=== PATIENT | female | born 1955 | race Caucasian/White ===

== ENCOUNTER 2020-03-03 14:29 | Inpatient (IN) ==
[2020-03-03] MEDS: Multivit/Ca/Min/Fe/FA 1 TAB TABLET PO SCH (20:52)
[2020-03-03] MEDS: Aspirin Enteric Coated 81 MG Tablet PO SCH (20:52)
[2020-03-03] MEDS: FLUoxetine 20 MG CAPSULE PO SCH (20:53)
[2020-03-03] MEDS: hydrOXYzine pamoate 25 MG CAPSULE PO SCH (20:54)
[2020-03-03] MEDS: *HR* OxyCODONE Immed Rel 5 MG TABLET PO PRN (20:54)
[2020-03-03] MEDS: Pregabalin 50 MG CAPSULE PO SCH (20:55)
[2020-03-04 06:40] LABS: Basophils # 0.1 K/mcL (0.0-0.2); Eosinophils # 0.5 K/mcL (0.0-0.6); Eosinophils % 4.9 %; Hematocrit 35.9 % (35.3-44.9); Hemoglobin 11.5 g/dL (11.5-15.4); Immature Granulocytes % 2.7 % (0-4); Lymphocytes # 4.2 K/mcL (0.6-4.6); Mean Corpuscular Hemoglobin 30.2 pg (28.0-33.3); Mean Corpuscular Volume 94.2 fL (83.0-100.0); Mean Platelet Volume 12.6 fL (9.4-12.4); Monocytes % 17.7 %; Nucleated Red Blood Cells 0.2 /100 WBC (0); Platelet Count 717 K/mcL (140-400); Red Blood Count 3.81 M/mcL (3.82-4.97); Red Cell Distribution Width 14.1 % (11.5-14.5); Segmented Neutrophils % 35.7 %; White Blood Count 11.1 K/mcL (4.3-11.1)
[2020-03-04 08:06] LABS: BUN/Creatinine Ratio 35 (6-26); Blood Urea Nitrogen 22 mg/dL (8-23); Calcium 8.8 mg/dL (8.6-10.3); Carbon Dioxide 27 mEq/L (23-29); Chloride 98 mEq/L (98-107); Glucose 97 mg/dL (70-105); Osmolality,Calculated 283 (280-300); Potassium 4.2 mEq/L (3.5-5.1); Sodium 135 mEq/L (136-145); eGFR For African Americans > 60 (> 60); eGFR For Non-African Americans > 60 (> 60)
[2020-03-04] MEDS: levoFLOXacin 250 MG TABLET PO SCH (08:31)
[2020-03-04] MEDS: Vitamin B Complex/Vit C/Vit E 1 EACH TABLET PO SCH (08:32)
[2020-03-04] MEDS: Cholecalciferol (D-3) 1,000 UNIT (25MCG) TABLET PO SCH (08:32)
[2020-03-04] MEDS: Pregabalin 50 MG CAPSULE PO SCH ×2 (08:32→20:19)
[2020-03-04 08:34] LABS: Platelet Estimate Increased (Normal)
[2020-03-04] MEDS: Acetaminophen/Aspirin/Caffeine TABLET PO PRN (10:22)
[2020-03-04 15:09] LABS: Bilirubin,Urine Negative (Negative); Blood,Urine Negative (Negative); Clarity,Urine Clear (Clear); Color,Urine Yellow (Yellow); Glucose,Urine (UA) Normal (Normal); Ketones,Urine Negative (Negative); Leukocyte Esterase,Urine Negative (Negative); Nitrite,Urine Negative (Negative); Protein,Urine Negative (Neg-Trace); Urobilinogen,Urine Normal (Normal)
[2020-03-04] MEDS: *HR* OxyCODONE Immed Rel 5 MG TABLET PO PRN (19:34)
[2020-03-04] MEDS: Multivit/Ca/Min/Fe/FA 1 TAB TABLET PO SCH (20:18)
[2020-03-04] MEDS: Aspirin Enteric Coated 81 MG Tablet PO SCH (20:19)
[2020-03-04] MEDS: hydrOXYzine pamoate 25 MG CAPSULE PO SCH (20:19)
[2020-03-04] MEDS: FLUoxetine 20 MG CAPSULE PO SCH (20:20)
[2020-03-04] MEDS: Acetaminophen 325 MG TABLET PO PRN (21:19)
[2020-03-05] MEDS: Acetaminophen 325 MG TABLET PO PRN ×2 (04:15→10:37)
[2020-03-05] MEDS: Cholecalciferol (D-3) 1,000 UNIT (25MCG) TABLET PO SCH (09:10)
[2020-03-05] MEDS: Vitamin B Complex/Vit C/Vit E 1 EACH TABLET PO SCH (09:10)
[2020-03-05] MEDS: levoFLOXacin 250 MG TABLET PO SCH (09:10)
[2020-03-05] MEDS: Pregabalin 50 MG CAPSULE PO SCH ×2 (09:10→20:32)
[2020-03-05] MEDS: Ondansetron ODT 4 MG TAB.RAPDIS PO PRN ×2 (10:34→21:20)
[2020-03-05] MEDS: hydrOXYzine pamoate 25 MG CAPSULE PO PRN (13:10)
[2020-03-05] MEDS: Acetaminophen/Aspirin/Caffeine TABLET PO PRN (18:46)
[2020-03-05] MEDS: FLUoxetine 20 MG CAPSULE PO SCH (20:31)
[2020-03-05] MEDS: Multivit/Ca/Min/Fe/FA 1 TAB TABLET PO SCH (20:32)
[2020-03-05] MEDS: hydrOXYzine pamoate 25 MG CAPSULE PO SCH (20:32)
[2020-03-05] MEDS: Aspirin Enteric Coated 81 MG Tablet PO SCH (20:32)
[2020-03-05] MEDS: *HR* OxyCODONE Immed Rel 5 MG TABLET PO PRN (22:41)
[2020-03-06] MEDS: Vitamin B Complex/Vit C/Vit E 1 EACH TABLET PO SCH (07:57)
[2020-03-06] MEDS: Cholecalciferol (D-3) 1,000 UNIT (25MCG) TABLET PO SCH (07:58)
[2020-03-06] MEDS: levoFLOXacin 250 MG TABLET PO SCH (07:58)
[2020-03-06] MEDS: Pregabalin 50 MG CAPSULE PO SCH ×2 (07:58→21:05)
[2020-03-06] MEDS: *HR* OxyCODONE Immed Rel 5 MG TABLET PO PRN (17:57)
[2020-03-06] MEDS: Aspirin Enteric Coated 81 MG Tablet PO SCH (21:04)
[2020-03-06] MEDS: FLUoxetine 20 MG CAPSULE PO SCH (21:05)
[2020-03-06] MEDS: Multivit/Ca/Min/Fe/FA 1 TAB TABLET PO SCH (21:05)
[2020-03-06] MEDS: hydrOXYzine pamoate 25 MG CAPSULE PO SCH (21:05)
[2020-03-06] MEDS: Acetaminophen/Aspirin/Caffeine TABLET PO PRN (22:29)
[2020-03-07] MEDS: *HR* OxyCODONE Immed Rel 5 MG TABLET PO PRN ×3 (02:18→21:28)
[2020-03-07] MEDS: Ondansetron ODT 4 MG TAB.RAPDIS PO PRN (05:18)
[2020-03-07] MEDS: Pregabalin 50 MG CAPSULE PO SCH ×2 (08:06→19:41)
[2020-03-07] MEDS: levoFLOXacin 250 MG TABLET PO SCH (08:06)
[2020-03-07] MEDS: Vitamin B Complex/Vit C/Vit E 1 EACH TABLET PO SCH (08:06)
[2020-03-07] MEDS: Cholecalciferol (D-3) 1,000 UNIT (25MCG) TABLET PO SCH (08:06)
[2020-03-07 16:30] LABS: Hematocrit 36.7 % (35.3-44.9); Hemoglobin 11.8 g/dL (11.5-15.4); Mean Corpuscular HGB Conc 32.2 g/dL (31.6-35.5); Mean Corpuscular Hemoglobin 30.5 pg (28.0-33.3); Mean Corpuscular Volume 94.8 fL (83.0-100.0); Mean Platelet Volume 12.4 fL (9.4-12.4); Platelet Count 667 K/mcL (140-400); Red Blood Count 3.87 M/mcL (3.82-4.97); Red Cell Distribution Width 14.3 % (11.5-14.5); White Blood Count 12.2 K/mcL (4.3-11.1)
[2020-03-07 16:53] LABS: BUN/Creatinine Ratio 13 (6-26); Blood Urea Nitrogen 8 mg/dL (8-23); Calcium 8.9 mg/dL (8.6-10.3); Carbon Dioxide 24 mEq/L (23-29); Chloride 100 mEq/L (98-107); Glucose 95 mg/dL (70-105); Osmolality,Calculated 274 (280-300); Potassium 4.2 mEq/L (3.5-5.1); Sodium 133 mEq/L (136-145); eGFR For African Americans > 60 (> 60); eGFR For Non-African Americans > 60 (> 60)
[2020-03-07] MEDS: Acetaminophen 325 MG TABLET PO PRN (18:35)
[2020-03-07] MEDS: hydrOXYzine pamoate 25 MG CAPSULE PO SCH (19:41)
[2020-03-07] MEDS: Aspirin Enteric Coated 81 MG Tablet PO SCH (19:41)
[2020-03-07] MEDS: FLUoxetine 20 MG CAPSULE PO SCH (19:41)
[2020-03-07] MEDS: Multivit/Ca/Min/Fe/FA 1 TAB TABLET PO SCH (19:42)
[2020-03-08 07:55] LABS: Hematocrit 36.3 % (35.3-44.9); Hemoglobin 11.7 g/dL (11.5-15.4); Mean Corpuscular HGB Conc 32.2 g/dL (31.6-35.5); Mean Corpuscular Hemoglobin 30.7 pg (28.0-33.3); Mean Corpuscular Volume 95.3 fL (83.0-100.0); Mean Platelet Volume 12.6 fL (9.4-12.4); Platelet Count 560 K/mcL (140-400); Red Blood Count 3.81 M/mcL (3.82-4.97); Red Cell Distribution Width 14.4 % (11.5-14.5); White Blood Count 7.9 K/mcL (4.3-11.1)
[2020-03-08 08:08] LABS: BUN/Creatinine Ratio 14 (6-26); Blood Urea Nitrogen 8 mg/dL (8-23); Calcium 8.5 mg/dL (8.6-10.3); Carbon Dioxide 26 mEq/L (23-29); Chloride 102 mEq/L (98-107); Glucose 105 mg/dL (70-105); Osmolality,Calculated 281 (280-300); Sodium 136 mEq/L (136-145); eGFR For African Americans > 60 (> 60); eGFR For Non-African Americans > 60 (> 60)
[2020-03-08] MEDS: Pregabalin 50 MG CAPSULE PO SCH ×2 (08:38→21:30)
[2020-03-08] MEDS: Cholecalciferol (D-3) 1,000 UNIT (25MCG) TABLET PO SCH (08:38)
[2020-03-08] MEDS: Vitamin B Complex/Vit C/Vit E 1 EACH TABLET PO SCH (08:38)
[2020-03-08] MEDS: Acetaminophen 325 MG TABLET PO PRN (08:39)
[2020-03-08] MEDS: Acetaminophen/Aspirin/Caffeine TABLET PO PRN (14:57)
[2020-03-08] MEDS: Ondansetron ODT 4 MG TAB.RAPDIS PO PRN (16:43)
[2020-03-08] MEDS: *HR* OxyCODONE Immed Rel 5 MG TABLET PO PRN (21:38)
[2020-03-08] MEDS: Aspirin Enteric Coated 81 MG Tablet PO SCH (21:39)
[2020-03-08] MEDS: Multivit/Ca/Min/Fe/FA 1 TAB TABLET PO SCH (21:40)
[2020-03-08] MEDS: hydrOXYzine pamoate 25 MG CAPSULE PO SCH (21:40)
[2020-03-08] MEDS: FLUoxetine 20 MG CAPSULE PO SCH (21:40)
[2020-03-09] MEDS: hydrOXYzine pamoate 25 MG CAPSULE PO PRN (02:14)
[2020-03-09] MEDS: Acetaminophen 325 MG TABLET PO PRN ×2 (04:09→14:34)
[2020-03-09] MEDS: Cholecalciferol (D-3) 1,000 UNIT (25MCG) TABLET PO SCH (08:33)
[2020-03-09] MEDS: Vitamin B Complex/Vit C/Vit E 1 EACH TABLET PO SCH (08:33)
[2020-03-09] MEDS: Pregabalin 50 MG CAPSULE PO SCH ×2 (08:34→20:32)
[2020-03-09] MEDS: *HR* OxyCODONE Immed Rel 5 MG TABLET PO PRN ×2 (08:36→16:56)
[2020-03-09] MEDS: hydrOXYzine pamoate 25 MG CAPSULE PO SCH (20:32)
[2020-03-09] MEDS: FLUoxetine 20 MG CAPSULE PO SCH (20:32)
[2020-03-09] MEDS: Acetaminophen/Aspirin/Caffeine TABLET PO PRN (20:32)
[2020-03-09] MEDS: Multivit/Ca/Min/Fe/FA 1 TAB TABLET PO SCH (20:32)
[2020-03-09] MEDS: Aspirin Enteric Coated 81 MG Tablet PO SCH (20:33)
[2020-03-10] MEDS: *HR* OxyCODONE Immed Rel 5 MG TABLET PO PRN ×3 (00:57→21:12)
[2020-03-10] MEDS: Pregabalin 50 MG CAPSULE PO SCH ×2 (08:46→21:11)
[2020-03-10] MEDS: Cholecalciferol (D-3) 1,000 UNIT (25MCG) TABLET PO SCH (08:47)
[2020-03-10] MEDS: Vitamin B Complex/Vit C/Vit E 1 EACH TABLET PO SCH (08:47)
[2020-03-10] MEDS: FLUoxetine 20 MG CAPSULE PO SCH (21:11)
[2020-03-10] MEDS: hydrOXYzine pamoate 25 MG CAPSULE PO SCH (21:11)
[2020-03-10] MEDS: Aspirin Enteric Coated 81 MG Tablet PO SCH (21:12)
[2020-03-10] MEDS: Multivit/Ca/Min/Fe/FA 1 TAB TABLET PO SCH (21:12)
[2020-03-11] MEDS: *HR* OxyCODONE Immed Rel 5 MG TABLET PO PRN ×3 (06:18→23:31)
[2020-03-11] MEDS: Cholecalciferol (D-3) 1,000 UNIT (25MCG) TABLET PO SCH (09:08)
[2020-03-11] MEDS: Vitamin B Complex/Vit C/Vit E 1 EACH TABLET PO SCH (09:08)
[2020-03-11] MEDS: Pregabalin 50 MG CAPSULE PO SCH ×2 (09:08→20:30)
[2020-03-11] MEDS: FLUoxetine 20 MG CAPSULE PO SCH (20:29)
[2020-03-11] MEDS: hydrOXYzine pamoate 25 MG CAPSULE PO SCH (20:30)
[2020-03-11] MEDS: Aspirin Enteric Coated 81 MG Tablet PO SCH (20:30)
[2020-03-11] MEDS: Multivit/Ca/Min/Fe/FA 1 TAB TABLET PO SCH (20:30)
[2020-03-11] MEDS: Acetaminophen 325 MG TABLET PO PRN (20:33)
[2020-03-12] MEDS: Pregabalin 50 MG CAPSULE PO SCH ×2 (09:18→20:16)
[2020-03-12] MEDS: Cholecalciferol (D-3) 1,000 UNIT (25MCG) TABLET PO SCH (09:18)
[2020-03-12] MEDS: Vitamin B Complex/Vit C/Vit E 1 EACH TABLET PO SCH (09:18)
[2020-03-12] MEDS: *HR* OxyCODONE Immed Rel 5 MG TABLET PO PRN ×2 (09:23→17:34)
[2020-03-12] MEDS: Ondansetron ODT 4 MG TAB.RAPDIS PO PRN (09:23)
[2020-03-12] MEDS: Acetaminophen 325 MG TABLET PO PRN (16:35)
[2020-03-12] MEDS: Aspirin Enteric Coated 81 MG Tablet PO SCH (20:16)
[2020-03-12] MEDS: hydrOXYzine pamoate 25 MG CAPSULE PO SCH (20:16)
[2020-03-12] MEDS: Multivit/Ca/Min/Fe/FA 1 TAB TABLET PO SCH (20:16)
[2020-03-12] MEDS: FLUoxetine 20 MG CAPSULE PO SCH (20:16)
[2020-03-13] MEDS: Ondansetron ODT 4 MG TAB.RAPDIS PO PRN ×2 (01:28→08:26)
[2020-03-13] MEDS: *HR* OxyCODONE Immed Rel 5 MG TABLET PO PRN ×3 (01:28→21:15)
[2020-03-13] MEDS: Cholecalciferol (D-3) 1,000 UNIT (25MCG) TABLET PO SCH (08:22)
[2020-03-13] MEDS: Pregabalin 50 MG CAPSULE PO SCH ×2 (08:22→20:44)
[2020-03-13] MEDS: Vitamin B Complex/Vit C/Vit E 1 EACH TABLET PO SCH (08:22)
[2020-03-13] MEDS: Acetaminophen 325 MG TABLET PO PRN (11:14)
[2020-03-13] MEDS ORDERED: Aspirin 325 MG TABLET PO ONE (13:05)
[2020-03-13] MEDS: FLUoxetine 20 MG CAPSULE PO SCH (20:44)
[2020-03-13] MEDS: hydrOXYzine pamoate 25 MG CAPSULE PO SCH (20:44)
[2020-03-13] MEDS: Multivit/Ca/Min/Fe/FA 1 TAB TABLET PO SCH (20:44)
[2020-03-13] MEDS: Aspirin Enteric Coated 81 MG Tablet PO SCH (20:45)
[2020-03-14] MEDS: *HR* OxyCODONE Immed Rel 5 MG TABLET PO PRN ×2 (08:26→20:12)
[2020-03-14] MEDS: Pregabalin 50 MG CAPSULE PO SCH ×2 (08:27→20:13)
[2020-03-14] MEDS: Cholecalciferol (D-3) 1,000 UNIT (25MCG) TABLET PO SCH (08:27)
[2020-03-14] MEDS: Vitamin B Complex/Vit C/Vit E 1 EACH TABLET PO SCH (08:27)
[2020-03-14] MEDS: Ondansetron ODT 4 MG TAB.RAPDIS PO PRN (17:02)
[2020-03-14] MEDS: Acetaminophen/Aspirin/Caffeine TABLET PO PRN (18:14)
[2020-03-14] MEDS: FLUoxetine 20 MG CAPSULE PO SCH (20:10)
[2020-03-14] MEDS: hydrOXYzine pamoate 25 MG CAPSULE PO SCH (20:11)
[2020-03-14] MEDS: Aspirin Enteric Coated 81 MG Tablet PO SCH (20:11)
[2020-03-14] MEDS: Multivit/Ca/Min/Fe/FA 1 TAB TABLET PO SCH (20:13)
[2020-03-15 07:13] VITALS: BP 93/51
[2020-03-15] MEDS: Cholecalciferol (D-3) 1,000 UNIT (25MCG) TABLET PO SCH (08:10)
[2020-03-15] MEDS: Vitamin B Complex/Vit C/Vit E 1 EACH TABLET PO SCH (08:10)
[2020-03-15] MEDS: Pregabalin 50 MG CAPSULE PO SCH (08:10)
[2020-03-15] MEDS: *HR* OxyCODONE Immed Rel 5 MG TABLET PO PRN (08:10)
[2020-03-15] MEDS: Ondansetron ODT 4 MG TAB.RAPDIS PO PRN (13:08)
== END 2020-03-15 15:35 | disposition home health service (06) | DRG 945 ==
LOC: INPPIK 19:35
PROVIDERS: ADMIT Family Medicine; ATTEND Family Medicine